=== PATIENT | male | born 1985 | race Caucasian/White ===

== ENCOUNTER 2023-01-17 05:01 | Day surgery (SDC) | payer OTHER ==
[2023-01-16 08:53] VITALS: BMI 25.8
[~2023-01-17 05:01] MED LIST: ceFAZolin SODIUM 1 GM VIAL IVPB ONE
[2023-01-17] MEDS ORDERED: MIDAZOLAM HCL 2 MG/2 ML SINGLE DOSE VIAL ONE ×2 (08:24→08:30)
[2023-01-17] MEDS ORDERED: ceFAZolin SODIUM 1 GM VIAL IVPB ONE (08:27)
[2023-01-17] MEDS ORDERED: oxyCODONE HCL 5 MG TABLET PO PRN (08:34)
[2023-01-17] MEDS ORDERED: DEXTROSE 5%-0.45% SALINE 1,000 ML IV SCH (08:45)
[2023-01-17 09:02] VITALS: RESP 18
[2023-01-17] MEDS ORDERED: ONDANSETRON 4 MG/2 ML VIAL ONE (09:33)
[2023-01-17] MEDS ORDERED: ONDANSETRON 4 MG/2 ML VIAL IVPB ONE (09:36)
[2023-01-17 11:51] VITALS: BP 123/70; PULSE 76; TEMP 98.8
== END 2023-01-17 11:37 | disposition home or self-care (01) ==
LOC: JASU-SURG 05:01
PROVIDERS: ATTEND Urology
PROC: 0TF4XZZ Fragmentation in Left Kidney Pelvis, External Approach (ICD-10-PCS; principal; 2023-01-17 08:15)
DX: N20.0 Calculus of kidney (principal)
CPT/HCPCS: 82962